=== PATIENT | male | born 1960 | race Caucasian/White ===

== ENCOUNTER 2024-02-12 06:21 | Emergency (ER) | payer MEDICARE, OTHER, BC ==
[~2024-02-12] VITALS: Ht 180.3 cm; Wt 84.1 kg
[2024-02-12 06:29] VITALS: BP 189/80
[2024-02-12] MEDS ORDERED: ILOTYCIN5 MG/GM OP (06:45)
[2024-02-12 06:55] VITALS: PULSE 61; TEMP 98.1
== END 2024-02-12 06:55 | disposition home or self-care (01) ==
LOC: COL.ER 06:21
DX: S05.01XA Injury of conjunctiva and corneal abrasion without foreign body, right eye, initial encounter (principal); X58.XXXA Exposure to other specified factors, initial encounter; Y92.096 Garden or yard of other non-institutional residence as the place of occurrence of the external cause; Y99.0 Civilian activity done for income or pay